=== PATIENT | female | born 1995 | race Caucasian/White ===

== ENCOUNTER 2019-12-20 09:45 | Emergency (ER) | payer OTHER ==
[2019-12-20] MEDS ORDERED: DOXYCYCL HYC100 MG PO (09:55)
[2019-12-20] MEDS ORDERED: CEFUROXIME250 MG PO (09:56)
[2019-12-20] MEDS ORDERED: IBUPROFEN600 MG PO (09:58)
[2019-12-20 10:34] LABS: HEMATOCRIT 40.4 % (37.0-47.0); HEMOGLOBIN 12.9 g/dl (12.0-16.0); IMMATURE GRANULOCYTES 0.2 % (0.0-5.0); MEAN CELL VOLUME 91.4 fL CALC (80.0-100.0); MEAN CORPUSCULAR HGB 29.2 pG CALC (26.0-32.0); MEAN CORPUSCULAR HGB CONC 31.9 g/dL CAL (32.0-36.0); NEUT# 3.54 thou/uL (2.00-7.15); RED BLOOD COUNT 4.42 mill/uL (4.20-5.60); RED CELL DISTRI WIDTH 12.4 % (11.5-15.5)
[2019-12-20 10:51] LABS: ALBUMIN 4.4 g/dL (3.2-5.0); ALKALINE PHOSPHATASE 58 u/l (38-126); ANION GAP 11 (6-22 (CALC)); BUN 5 mg/dL (7-17); BUN/CREATININE RATIO 7 (12-20 (CALC)); CARBON DIOXIDE 29 mmol/l (22-30); CHLORIDE 101 mmol/l (95-108); CREATININE 0.6 mg/dL (0.5-1.0); GFR > 60 ML/MIN (>=60 (CALC)); GFR FOR AFR.AMER. > 60 ML/MIN (>=60 (CALC)); POTASSIUM 4.2 mmol/l (3.5-5.1); SGOT/AST 37 u/l (14-36); SODIUM 137 mmol/l (137-146); TOTAL PROTEIN 7.6 g/dL (6.3-8.2)
[2019-12-20] MEDS ORDERED: DOXYCYC MONO100 M2 PO (10:59)
[2019-12-20 11:54] VITALS: BP 108/63
== END 2019-12-20 11:52 | disposition home or self-care (01) | DRG 605 ==
LOC: ED 09:45
PROVIDERS: Emergency Medicine
DX: S61.552A Open bite of left wrist, initial encounter (principal); F41.9 Anxiety disorder, unspecified; W55.01XA Bitten by cat, initial encounter; Y92.512 Supermarket, store or market as the place of occurrence of the external cause; Y99.0 Civilian activity done for income or pay